=== PATIENT | male | born 1980 | race Caucasian/White ===

== ENCOUNTER 2019-04-09 07:29 | Inpatient (IN) | payer OTHER ==
[~2019-04-09] VITALS: Ht 170.2 cm; Wt 76.2 kg
--- NOTE | 2019-04-09 08:00 | NUR ---
PTE MASCULINO ALERTA Y OPRIENTADO EN LAS BOBBY ESFERAS REFIERE DOLOR ABDOMINAL EN CUADRANTE INFERIOR L+, DIARREAS Y VOMITOS DESDE ESTA MADRUGADA. SE UBICA PTE EN AREA DE OBSERVACION PARA EVALUACION MEDICA.
--- NOTE | 2019-04-09 08:34 | NUR ---
MR. SOLOMONGO EDUCA A PTE SOBRE [place] MEDICO COLTEN REFIERE ENTENDER. SE RANDALL MUESTRAS DE LAB UTILIZANDO MEDIDAS ASEPTICAS. SE COLOCA H/L A PTE EL CUAL SE ENCUENTRA APTENT ELBIRE DE EDEMA Y ENROJECIMIENTO. SE ADMINISTRAN MEDS A PTE JEANNE ORDEN MEDICA, PTE TOLERA LOS MISMOS. SE NOTIFICA ESTUDIO DE CT PROTOCOLOCA PENDIENTE A REALIZAR. PTE SE CONTINUA MONITORIANDO POR CAMBIOS.
[2019-04-09] MEDS ORDERED: ULTRAM50 MG PO (13:47)
[2019-04-09] MEDS ORDERED: TYLENOL ARTHRI650 MG PO (13:47)
[2019-04-09] MEDS ORDERED: NEURONTIN300 MG PO (13:47)
[2019-04-09] MEDS ORDERED: MIRALAX17 GM PO (13:47)
== END 2019-04-10 09:28 | disposition home or self-care (01) | DRG 343 ==
LOC: ER 07:29 → O/R 10:46 → SURH 14:32
PROVIDERS: ADMIT Surgery
PROC: BW21ZZZ Computerized Tomography (CT Scan) of Abdomen and Pelvis (ICD-10-PCS; 2019-04-09)
PROC: 0DTJ4ZZ Resection of Appendix, Percutaneous Endoscopic Approach (ICD-10-PCS; principal; 2019-04-09 11:00)
DX: K35.890 Other acute appendicitis without perforation or gangrene (principal)